=== PATIENT | female | born 1970 | race Caucasian/White ===

== ENCOUNTER 2022-01-10 05:18 | Inpatient (IN) | payer BC ==
[2022-01-10] MEDS ORDERED: Celecoxib 200 MG Cap PO ONE (05:45)
[2022-01-10] MEDS ORDERED: Acetaminophen 500 MG Tab PO ONE (05:45)
[2022-01-10] MEDS ORDERED: Scopolamine 1.5 MG Transdermal Patch TOP SCH (05:45)
[2022-01-10] MEDS ORDERED: Dextrose 5%-Lactated Ringers 1,000 ML IV SCH (06:00)
[2022-01-10] MEDS ORDERED: cefOXitin 2 GM Vial ONE (06:59)
[2022-01-10] MEDS ORDERED: Dexamethasone 4 MG/ML SDV ONE (07:00)
[2022-01-10] MEDS ORDERED: fentaNYL 250 MCG/5 ML SDV ONE ×2 (07:00→07:54)
[2022-01-10] MEDS ORDERED: Glycopyrrolate 0.2 MG/ML 5 ML MDV ONE (07:00)
[2022-01-10] MEDS ORDERED: Rocuronium 50 MG/5 ML Vial ONE (07:00)
[2022-01-10] MEDS ORDERED: Propofol 200 MG/20 ML SDV ONE (07:00)
[2022-01-10] MEDS ORDERED: Succinylcholine 200 MG/10 ML MDV ONE (07:00)
[2022-01-10] MEDS ORDERED: Neostigmine Methylsulfate 1 MG/ML 5 ML Syringe ONE (07:00)
[2022-01-10] MEDS ORDERED: Ondansetron 4 MG/2 ML SDV ONE (07:00)
[2022-01-10] MEDS ORDERED: Lactated Ringers 1,000 ML ONE (07:03)
[2022-01-10] MEDS ORDERED: cefOXitin 2 GM in Sodium Chloride 0.9% 50 ML IV ONE (07:30)
[2022-01-10] MEDS ORDERED: Ketamine 17 MG in Sodium Chloride 0.9% 19.83 ML IV SCH (07:45)
[2022-01-10] MEDS ORDERED: Ketamine 500 MG/5 ML MDV IV SCH (07:45)
[2022-01-10] MEDS ORDERED: Labetalol 20 MG/4 ML Syringe ONE (08:19)
[2022-01-10] MEDS ORDERED: hydrOXYzine HCL 100 MG/2 ML SDV IM ONE (09:16)
[2022-01-10] MEDS ORDERED: Cyclobenzaprine 10 MG Tab PO PRN (10:02)
[2022-01-10] MEDS ORDERED: Acetaminophen 500 MG Tab PO PRN (10:15)
[2022-01-10] MEDS ORDERED: HYDROmorphone 0.5 MG/0.5 ML Syringe IVPUSH PRN (10:15)
[2022-01-10] MEDS ORDERED: Labetalol 20 MG/4 ML Syringe IVPUSH PRN (10:15)
[2022-01-10] MEDS ORDERED: oxyCODONE 5 MG Tab PO PRN (10:15)
[2022-01-10] MEDS ORDERED: Metoclopramide 10 MG/2 ML SDV IVPUSH PRN (10:15)
[2022-01-10] MEDS ORDERED: hydrOXYzine HCL 100 MG/2 ML SDV IM PRN (10:15)
[2022-01-10] MEDS ORDERED: Ondansetron 4 MG/2 ML SDV IVPUSH PRN (10:15)
[2022-01-10] MEDS ORDERED: HYDROmorphone 1 MG/ML Syringe IV PRN (10:15)
[2022-01-10] MEDS ORDERED: diphenhydrAMINE 50 MG/ML SDV IVPUSH PRN (10:15)
[2022-01-10] MEDS: Pantoprazole 40 MG Vial IVPUSH SCH (11:43)
[2022-01-10] MEDS: traMADol 50 MG Tab PO PRN (13:29)
[2022-01-10] MEDS: cefOXitin 2 GM in Sodium Chloride 0.9% 50 ML IV SCH ×2 (13:30→19:34)
[2022-01-10] MEDS: Dextrose 5%-Lactated Ringers 1,000 ML IV SCH ×2 (13:35→23:10)
[2022-01-10] MEDS: Acetaminophen 500 MG Tab PO SCH ×2 (13:45→22:44)
[2022-01-10] MEDS: MVI, Adult with Vitamin K 10 ML, Thiamine 200 MG, Zinc/Copper/Manganese/Selenium 1 ML i... IV SCH ×4 (16:52)
[2022-01-10] MEDS: Heparin Sodium 5,000 Units/ML Vial SUBCUT SCH (17:36)
[2022-01-11] MEDS: cefOXitin 2 GM in Sodium Chloride 0.9% 50 ML IV SCH ×3 (02:33→13:26)
[2022-01-11] MEDS ORDERED: Iopamidol 612 MG/ML 50 ML SDV PO PRN (02:47)
[2022-01-11] MEDS: Heparin Sodium 5,000 Units/ML Vial SUBCUT SCH ×2 (05:18→17:35)
[2022-01-11] MEDS: Acetaminophen 500 MG Tab PO SCH ×3 (05:18→21:24)
[2022-01-11] MEDS: Dextrose 5%-Lactated Ringers 1,000 ML IV SCH (05:19)
[2022-01-11] MEDS: FLUoxetine 20 MG Cap PO SCH (08:02)
[2022-01-11] MEDS: Celecoxib 200 MG Cap PO SCH ×2 (08:02→21:24)
[2022-01-11] MEDS: SCOPOLAMINE PATCH CHECK TOP SCH (08:06)
[2022-01-11] MEDS ORDERED: Dextrose 5%-Lactated Ringers 1,000 ML IV SCH (09:30)
[2022-01-11] MEDS: Pantoprazole 40 MG Vial IVPUSH SCH (10:37)
[2022-01-11] MEDS: traMADol 50 MG Tab PO PRN (13:31)
[2022-01-11] MEDS: MVI, Adult with Vitamin K 10 ML, Thiamine 200 MG, Zinc/Copper/Manganese/Selenium 1 ML i... IV SCH ×4 (16:18)
[2022-01-12] MEDS: Heparin Sodium 5,000 Units/ML Vial SUBCUT SCH (05:26)
[2022-01-12] MEDS: Acetaminophen 500 MG Tab PO SCH (05:26)
[2022-01-12] MEDS: traMADol 50 MG Tab PO PRN (07:33)
[2022-01-12] MEDS ORDERED: Cyanocobalamin (Vitamin B12) 1,000 MCG/ML SDV IM ONE (09:00)
[2022-01-12] MEDS: SCOPOLAMINE PATCH CHECK TOP SCH (09:03)
[2022-01-12] MEDS: Celecoxib 200 MG Cap PO SCH (09:05)
[2022-01-12] MEDS: FLUoxetine 20 MG Cap PO SCH (09:05)
== END 2022-01-12 09:50 | disposition home or self-care (01) | DRG 403 ==
LOC: JP.SDSSCHI 05:18 → JP.SDS 05:18 → EDSTATUS 07:15 → JP.MS 09:00
PROVIDERS: ADMIT Surgery; ATTEND Surgery
PROC: 0D164ZA Bypass Stomach to Jejunum, Percutaneous Endoscopic Approach (ICD-10-PCS; principal; 2022-01-10)
PROC: 0FB24ZX Excision of Left Lobe Liver, Percutaneous Endoscopic Approach, Diagnostic (ICD-10-PCS; 2022-01-10)
PROC: 0BQT4ZZ Repair Diaphragm, Percutaneous Endoscopic Approach (ICD-10-PCS; 2022-01-10)
DX: E66.01 Morbid (severe) obesity due to excess calories (principal); G47.30 Sleep apnea, unspecified; I10 Essential (primary) hypertension; E78.5 Hyperlipidemia, unspecified; D64.9 Anemia, unspecified; H66.90 Otitis media, unspecified, unspecified ear; Z98.49 Cataract extraction status, unspecified eye; Z98.51 Tubal ligation status; Z79.899 Other long term (current) drug therapy; Z68.41 Body mass index [BMI] 40.0-44.9, adult
CPT/HCPCS: 36415; 74240; 74240-26; 82947; 86850; 86900; 86901; A9270-GY; C9113; J0171; J0330; J0694; J1100; J1170; J1644; J2405; J2704; J2710; J2795; J3010; J3410; J3411; J3420; J3490; J7030; J7120; J7121; Q9967